=== PATIENT | female | born 1945 | race Asian ===

== ENCOUNTER 2016-10-12 22:53 | Inpatient (IN) | payer OTHER ==
[~2016-10-12] VITALS: Ht 144.8 cm; Wt 53.3 kg
--- NOTE | 2016-10-12 23:03 | NUR ---
PT BIBA FOR C/O HEADACHE FOR "SEVERAL WEEKS". PT REPORTS SHE HAS BEEN SEEN X5 THIS MONTH FOR HEADACHE, HIGH BP AND VOMITING. PT REPORTS NAUSEA AND VOMITING TODAY. PT REPORTS PRESSURE LIKE HEADACHE. PT DENIES ANY DYSURIA/HEMATURIA. RESPIRATIONS EVEN AND UNLABORED. NO ACUTE DISTRESS NOTED. BED IN LOW POSITION. CALL LIGHT WITHIN REACH.
--- NOTE | 2016-10-12 23:35 | NUR ---
PT ASSISTED TO BEDSIDE COMMODE AND BACK INTO BED, NO ACUTE DISTRESS NOTED.
[2016-10-12 23:54] LABS: PLATELET COUNT 216 x10^3mcL (130-400)
[2016-10-12 23:55] LABS: RED CELL DISTRIBUTION WIDTH 14.9 % (11.5-14.5)
--- NOTE | 2016-10-12 23:55 | NUR ---
PT SITTING IN BED, IN POSITION OF COMFORT. RESPIRATIONS EVEN AND UNLABORED. SON AT BEDSIDE. NO ACUTE DISTRESS NOTED. BED IN LOW POSITION. CALL LIGHT WITHIN REACH.
[2016-10-13 00:19] LABS: ALBUMIN 3.5 g/dL (3.4-5.0); ALKALINE PHOSPHATASE 63 U/L (46-116); ALT/SGPT 32 U/L (14-59); AST/SGOT 21 U/L (15-37); BILIRUBIN TOTAL 0.5 mg/dL (0.20-1.00); CALCIUM 8.7 mg/dL (8.5-10.1); CARBON DIOXIDE 28.2 mmol/L (21-32); CHLORIDE SERUM 79 mmol/L (98-107); CREATININE SERUM 0.7 mg/dL (0.6-1.0); GFR1 > 60 mL/min; GLUCOSE SERUM 132 mg/dL (74-106); POTASSIUM SERUM 3.4 mmol/L (3.5-5.1); TOTAL PROTEIN, SERUM 7.9 g/dL (6.4-8.2)
[2016-10-13 00:22] LABS: SODIUM SERUM 114 mmol/L (136-145)
[2016-10-13 00:40] LABS: ATYPICAL LYMPH 1 %; BAND NEUTROPHIL 5 % (0-10); MONOCYTE 13 % (0-7); SEGMENTED NEUTROPHILS 59 % (37-75)
[2016-10-13 00:42] LABS: PLATELET MORPHOLOGY LARGE PLATELET SEEN; rbc morphology (normal/abnorm) ABNORMAL (NORMAL)
--- NOTE | 2016-10-13 00:57 | NUR ---
PT SITTING IN BED, IN POSITION OF COMFORT. RESPIRATIONS EVEN AND UNLABORED. NO ACUTE DISTRESS NOTED. BED IN LOW POSITION. CALL LIGHT WITHIN REACH.
[2016-10-13] MEDS ORDERED: PEPCID20 MG PO (01:05)
[2016-10-13] MEDS ORDERED: FUROSEMIDE20 MG PO (01:07)
[2016-10-13] MEDS ORDERED: COZAAR100 MG PO (01:08)
[2016-10-13] MEDS ORDERED: NOR10 PO (01:08)
[2016-10-13] MEDS ORDERED: MINOXIDIL2.5 MG PO (01:08)
[2016-10-13] MEDS ORDERED: LORAZEPAM0.5 MG PO (01:09)
[2016-10-13] MEDS ORDERED: GLIPIZIDE10 M2 PO (01:09)
[2016-10-13] MEDS ORDERED: CATAPRES0.1 MG PO (01:09)
[2016-10-13] MEDS ORDERED: ASPIR 8181 MG PO (01:10)
[2016-10-13] MEDS ORDERED: HYDROCHLOROTHIA25 MG PO (01:10)
[2016-10-13] MEDS ORDERED: METFORMIN HCL750 MG PO (01:10)
--- NOTE | 2016-10-13 01:10 | NUR ---
PT ADMITTED FROM ED ACCOMPANIED BY ED NURSE. PT IS AWAKE AND ORIENTED X4. PT REPORTS GODOY AND HAS BEEN EXPERIENCING GODOY ON AND OFF FOR A COUPLE OF WEEKS. PT SPEAKS POLISH PRIMARILY BUT IS ABLE TO COMMUNICATE AND MAKE NEEDS KNOWN TO NURSING STAFF. PT IS SINUS NICO 55 ON TELE#10. PT DENIES CHEST PAIN OR PRESSURE. PT HAS PALPABLE PULSES BILAT ALL EXTREMITIES. NO SIGNS OF EDEMA. PT DENIES SOB. RESPIRATIONS EVEN AND UNLABORED ON ROOM AIR. PT HAS CLEAR LUNG SOUNDS. PT HAS ACTIVE BOWEL SOUNDS. PT REPORT LAST BM WAS 10/12/16. PT DENIES ABD PAIN AND N/V AT THIS TIME. PT VOIDS FREELY ON OWN. PT AMBULATORY WITH ASSIST. PT HAS GENERALIZED WEAKNESS. PT SKIN CDI. IV TO RIGHT WRIST. IV PATENT WITH NO SIGNS OF INFILTRATION. NO SIGNS OF DISTRESS. WILL CONTINUE TO MONITOR.
--- NOTE | 2016-10-13 01:25 | NUR ---
REPORT CALLED TO [facility] FOR ADMISSION OF THIS PT.
[2016-10-13] MEDS ORDERED: GLUCOTROL10 MG PO (03:05)
[2016-10-13 03:15] LABS: CHOLESTEROL/HDL RATIO 1.8
[2016-10-13 03:22] LABS: FREE T4 1.53 ng/dL (0.76-1.46); FREE THYROXINE INDEX 4.1 ug/dL (1.4-4.5); T4(THYROXINE) 11.5 ug/dL (4.7-13.3)
[2016-10-13 04:20] VITALS: BP 162/54
[2016-10-13 04:38] LABS: T3 TOTAL 0.99 ng/mL
--- NOTE | 2016-10-13 04:55 | NUR ---
PT REMAINS IN BED AT THIS TIME RESTING WITH EYES CLOSED. PT SINUS NICO AT THIS TIME BUT NO SIGNS OF DISTRESS NOTED. WILL CONTINUE TO MONITOR.
[2016-10-13 06:33] LABS: PLATELET COUNT 229 x10^3mcL (130-400)
[2016-10-13 06:42] LABS: CALCIUM 8.3 mg/dL (8.5-10.1); CARBON DIOXIDE 28.9 mmol/L (21-32); CHLORIDE SERUM 81 mmol/L (98-107); CREATININE SERUM 0.7 mg/dL (0.6-1.0); GFR1 > 60 mL/min; GLUCOSE SERUM 100 mg/dL (74-106); MAGNESIUM 1.4 mg/dL (1.8-2.4); PHOSPHOROUS 3.6 mg/dL (2.5-4.9); POTASSIUM SERUM 3.4 mmol/L (3.5-5.1)
[2016-10-13 06:46] LABS: SODIUM SERUM 117 mmol/L (136-145)
[2016-10-13 06:59] VITALS: BP 170/50
--- NOTE | 2016-10-13 07:03 | NUR ---
PT IS CALM AND COOPERATIVE WITH NURSING CARE. PT BP 170/50. PT GIVEN 0900 MEDS EARLY (WALDO RAY). PT DENIES CHEST PAIN OR PRESSURE. PT DENIES SOB. RESPIRATIONS EVEN AND UNLABORED ON ROOM AIR. NO SIGNS OF DISTRESS. WILL ENDORSE TO DAY NURSE.
[2016-10-13 07:05] LABS: RED CELL DISTRIBUTION WIDTH 14.7 % (11.5-14.5)
--- NOTE | 2016-10-13 08:00 | NUR ---
PT AWAKE AND ALERT. TEMP 98.7. TELE #10 SINUS RHYTHM RATE 60. DENIES CHEST DISCOMFORT OR GODOY AT THIS TIME. 0700 KN=187/50. HR=54. WILL CONTINUE TO MONITOR. RESP 18 EVEN. BREATH SOUNDS CLEAR. NO COUGH OR SOB. ABD SOFT, BOWEL TONES PRESENT. LBM THIS AM. VOIDING QS. NO EDEMA. PULSES PRESENT. SCD IN PLACE. IV PATENT RIGHT WRIST INFUSING NORMAL SALINE 50CC/HR. SIDE RAILS UP X2. CALL LIGHT IN REACH.
--- NOTE | 2016-10-13 08:50 | NUR ---
HR=60. OH=054/57. PULSE OX 100% RA. DENIES CHEST DISCOMFORT. ANXIOUS RE:AMOUNT OF MEDS HER PCP ORDERS FOR HER. "I TAKE 5 BP PILLS AT HOME." FULL LIQ BREAKFAST SERVED.
[2016-10-13 09:15] VITALS: BP 158/57
[2016-10-13 09:39] LABS: ATYPICAL LYMPH 1 %; BAND NEUTROPHIL 0 % (0-10); BASOPHIL 0 % (0-2); MONOCYTE 16 % (0-7); SEGMENTED NEUTROPHILS 50 % (37-75); rbc morphology (normal/abnorm) ABNORMAL (NORMAL)
--- NOTE | 2016-10-13 10:00 | NUR ---
REVIEWED WITH PT AND S/S OF LOW SODIUM LEVEL. MAY CAUSE SEIZURES. SEIZURE PRECAUTIONS IN PLACE AT THIS TIME. NO SEIZURE ACTIVITY NOTED. REVIEWED FLUID INTAKE AT HOME. STATES "SHE DRINKS ALOT OF WATER AT HOME." INSTRUCTED WITH FLUID RESTRICTION 1000CC PER 24 HOURS. PT AND VERBALIZED UNDERSTANDING.
[2016-10-13 12:45] VITALS: BP 172/66
--- NOTE | 2016-10-13 12:45 | NUR ---
NB=602/66. HR=60. PULSE OX 100% RA. LAB CALLED WITH SODIUM NUING=791. MED WITH CLONIDINE 0.1MG PO ORDERED. WILL CONTINUE TO MONITOR VITAL SIGNS. TOLERATED LOW FAT DIET WELL.
--- NOTE | 2016-10-13 12:50 | NUR ---
PAGE TO DR PÉREZ REGHAROONING PT STATUS. AWAITING RETURN CALL.
[2016-10-13 12:54] LABS: CALCIUM 8.7 mg/dL (8.5-10.1); CARBON DIOXIDE 25.8 mmol/L (21-32); CHLORIDE SERUM 86 mmol/L (98-107); CREATININE SERUM 0.7 mg/dL (0.6-1.0); GFR1 > 60 mL/min; GLUCOSE SERUM 161 mg/dL (74-106); POTASSIUM SERUM 4.4 mmol/L (3.5-5.1)
[2016-10-13 12:57] LABS: SODIUM SERUM 120 mmol/L (136-145)
[2016-10-13 13:08] LABS: UA SPECIFIC GRAVITY <=1.005 (1.005-1.035); microscopic required? YES; urine erythrocyte NEGATIVE (NEGATIVE)
[2016-10-13 13:22] LABS: AMPHETAMINE QUAL UR NONE DETECTED (NEG <=1000)
[2016-10-13 13:40] VITALS: Ht 144.8 cm; Wt 53.3 kg
--- NOTE | 2016-10-13 13:45 | NUR ---
ULTRASOUND AT BEDSIDE.
--- NOTE | 2016-10-13 14:05 | NUR ---
CALL FROM [place]. PT HAD SHORT RUN V-TACH 9 SEC. PRINTOUT ON CHART. PERFECT BINDER OPERATOR AT BEDSIDE. VITAL SIGNS TAKEN. PT AWAKE AND ALERT. DENIES CHEST DISCOMFORT OR PALPITATIONS. HR=59. SD=999/66. PULSE OX 100%. PAGE TO DR PÉREZ.
--- NOTE | 2016-10-13 14:10 | NUR ---
RHYTHM STRIP REVIEWED WITH DR PÉREZ. UPDATED WITH NA LEVEL 120, AND XX=590/66. ALSO REVIEWED SONS REQUEST FOR DR TO CALL TO UPDATE ON MOTHERS CONDITION DUE TO LANGUAGE BARRIER. VERBALIZED UNDERSTANDING.
[2016-10-13 16:46] LABS: CALCIUM 8.5 mg/dL (8.5-10.1); CARBON DIOXIDE 30.7 mmol/L (21-32); CHLORIDE SERUM 90 mmol/L (98-107); CREATININE SERUM 0.9 mg/dL (0.6-1.0); GFR1 > 60 mL/min; GLUCOSE SERUM 163 mg/dL (74-106); POTASSIUM SERUM 4.4 mmol/L (3.5-5.1)
[2016-10-13 16:48] LABS: SODIUM SERUM 123 mmol/L (136-145)
--- NOTE | 2016-10-13 17:00 | NUR ---
LAB CALLED WITH SODIUM LEVEL 123. REPORTED TO DR PÉREZ. SON HERE AT BEDSIDE. WOULD LIKE TO DISCUSS MOTHERS STATUS. DR PÉREZ WILL BE OVER TO SPEAK WITH PT AND FAMILY. ALSO AT BEDSIDE. NO FURTHER NOTE OF VTACH THIS AFTERNOON. ELEVATED T WAVE NOTED SINUS NICO RATE 58-60. ORTHOSTATIC VITAL SIGNS DONE. SEE VITAL SIGNS SECTION. PT DENIES PAIN. IV CONTINUES PATENT. JLS=[id number]. RISS COVERAGE 3 UNITS SQ. DISCUSSED WITH SON MOTHERS HABITS AT HOME:REPORTS "SHE GETS ANXIOUS BECAUSE SHE TAKES A WATER PILL AND URINATES ALOT SO SHE DRINKS ALOT OF WATER TO REPLACE THAT, HER BLOOD PRESSURE IS HIGH SO SHE DOES NOT EAT ALOT OF FOOD. C/O STOMACH DISCOMFORT AT HOME, NAUSEA, VOMITTING AND DIARRHEA. SEEN BY GI DR YESTERDAY AND WANTS TO DO ENDOSCOPY PROCEDURE TO CHECK STOMACH FOR IRRITATION. WOULD TO HAVE IT DONE HERE IF POSSIBLE. HAS BEEN ON METFORMIN FOR 10 YEARS, DIABETIC FOR 20 YEARS. WE WOULD LIKE HER TO START ON INSULIN BECAUSE THE PILLS ARE UPSETTING HER STOMACH. THIS IS HER 5TH HOSPITAL VISIT FOR LOW SODIUM LEVEL. HER POTASSIUM LEVEL WAS HIGH LAST TIME. HER PCP STARTED HER ON ATIVAN 0.5MG AT HOME. SHE IS SO ANXIOUS, TAKES BP Q15 MIN SOMETIMES. ALSO HAD ONE KIDNEY REMOVED AT AGE 16." A[address] PÉREZ TO REVIEW TX PLAN.
--- NOTE | 2016-10-13 18:35 | NUR ---
DR PÉREZ IN TO SPEAK WITH PT AND FAMILY.
--- NOTE | 2016-10-13 19:50 | NUR ---
REC'D PT FROM DAY SHIFT NURSE. PT LAYING COMFORTABLY IN BED. AAOX4, SPEECH CLEAR, CALM AND PLEASANT. NO SIGNS OF DISTRESS NOTED. BREATHING EVEN/UNLABORED. ON TELE #10. DENIES CP, DIZZINESS, OR PALPITATIONS. DENIES ABD PAIN OR N/V. NO EPISODES OF DIARRHEA TODAY. CALL LIGHT WITHIN REACH, BED AT LOWEST POSITION. WILL CONTINUE TO MONITOR.
[2016-10-13 20:35] LABS: CALCIUM 8.7 mg/dL (8.5-10.1); CARBON DIOXIDE 27.3 mmol/L (21-32); CHLORIDE SERUM 91 mmol/L (98-107); CREATININE SERUM 0.8 mg/dL (0.6-1.0); GFR1 > 60 mL/min; GLUCOSE SERUM 68 mg/dL (74-106); POTASSIUM SERUM 4.4 mmol/L (3.5-5.1); SODIUM SERUM 126 mmol/L (136-145)
[2016-10-13 20:57] VITALS: BP 130/48; BP 172/50
--- NOTE | 2016-10-13 21:30 | NUR ---
BS 57/59. PT FEELS "FINE." NO COMPLAINTS AT THIS TIME. 1 AMP D50 IVP GIVEN. WILL RECHECK IN [address] MONTOYA MADE AWARE.
--- NOTE | 2016-10-13 21:56 | NUR ---
RECHECKED BS 177. PT DENIES GODOY OR DIZZINESS. WILL TRY AND SLEEP NOW. DR. MONTOYA AWARE. WILL CONTINUE TO MONITOR.
--- NOTE | 2016-10-14 01:26 | NUR ---
PT RESTING IN BED WITH EYES CLOSED. AUDIBLE SNORING. NO SIGNS OF DISTRESS NOTED. BREATHING EVEN/UNLABORED. CALL LIGHT WITHIN REACH, BED AT LOWEST POSITION. WILL CONTINUE TO MONITOR.
[2016-10-14 05:38] VITALS: BP 189/63
--- NOTE | 2016-10-14 06:10 | NUR ---
PT RESTING COMFORTABLY IN BED. AWAKE, QUIET, CALM. SPEECH CLEAR. NO SIGNS OF DISTRESS NOTED. BREATHING EVEN/UNLABORED. C/O R RIB PAIN 03/26. DENIES SOB. MORPHINE GIVEN PER ORDER. BS 106, NO COVERAGE. DENIES DIZZINESS, GODOY, OR N/V. NO BM TONIGHT. NO SIGNIFICANT CHANGES DURING SHIFT. CALL LIGHT WITHIN REACH, BED AT LOWEST POSITION, SZ PREC IN PLACE. WILL ENDORSE TO DAY SHIFT NURSE.
[2016-10-14 07:25] LABS: CALCIUM 8.3 mg/dL (8.5-10.1); CARBON DIOXIDE 26.9 mmol/L (21-32); CHLORIDE SERUM 92 mmol/L (98-107); CREATININE SERUM 0.6 mg/dL (0.6-1.0); GFR1 > 60 mL/min; GLUCOSE SERUM 125 mg/dL (74-106); MAGNESIUM 2.1 mg/dL (1.8-2.4); PHOSPHOROUS 3.5 mg/dL (2.5-4.9); POTASSIUM SERUM 4.1 mmol/L (3.5-5.1); SODIUM SERUM 127 mmol/L (136-145)
--- NOTE | 2016-10-14 07:30 | NUR ---
RECEIVED THE PATIENT AWAKE AND ORIENTED TO PERSON, PLACE AND TIMES. DENIED SHORTNESS OF BREATH OR NAUSEA/VOMITING AT THIS TIME. PATIENT STATED HAVING SOME UNCOMFORT IN STOMACH; WILL MEDICATE FOR THAT. IVF NS VIA H/L TO RIGHT WRIST. TELE # 10 READS SINUS RHYTHMS WITH EPISODES OF SINUS BRADYCARDIA. CALL LIGHT WITHIN REACH. SIDE RAILS UP X3.
[2016-10-14 07:50] LABS: PLATELET COUNT 248 x10^3mcL (130-400)
[2016-10-14 07:53] LABS: RED CELL DISTRIBUTION WIDTH 14.9 % (11.5-14.5)
--- NOTE | 2016-10-14 09:10 | NUR ---
DR. JORDAN AND THE TEAM WERE MAKING ROUND TO SEE THE PATIENT. THE CARE PLAN WAS EXPLAINED TO THE PATIENT VIA [employer] DEVELOPMENT TEAM LEAD-ONE OF RN, AND THE PATIENT VERBALIZED UNDERSTANDING.
[2016-10-14 11:15] VITALS: BP 154/54
[2016-10-14 11:17] LABS: BAND NEUTROPHIL 6 % (0-10); MONOCYTE 15 % (0-7); SEGMENTED NEUTROPHILS 56 % (37-75)
[2016-10-14 11:18] LABS: rbc morphology (normal/abnorm) ABNORMAL (NORMAL)
[2016-10-14 11:19] LABS: PLATELET MORPHOLOGY PLATELETS NORMAL
[2016-10-14 14:46] VITALS: BP 141/50
--- NOTE | 2016-10-14 18:57 | NUR ---
THE PATIENT WAS RESTING IN BED WITHOUT DISTRESS NOTED. THE PATIENT AMBULATED IN THE HALLWAY TWICE DURING THE SHIFT. THE SON WAS AT BEDSIDE WITH THE PATIENT.
--- NOTE | 2016-10-14 19:23 | NUR ---
SEIZURE PRECAUTION MAINTAINED THROUGHOUT THE SHIFT FOR LOW NA LEVEL 127.
--- NOTE | 2016-10-14 19:35 | NUR ---
RECEIVED REPORT FROM DAY RN. PT IS AWAKE, SITTING IN CHAIR TALKING WITH FAMILY MEMEBERS. PT IS A/O X4. SPEECH CLEAR, FOLLOWS ALL COMMANDS. RESPIRATIONS EVEN AND UNLABORED ON ROOM AIR. PT SR ON MONITOR TELE # 10. PT ASKING FOR WATER, INFORMED HER SHE IS ON FLUID RESTRICTION AND THE AMOUNT SHE CAN HAVE FOR THE REST OF THE EVENING, PT VERBALIZED UNDERSTANDING, PROVIDED. IV TO R WRIST LOCKED. PT ABLE TO REPOSITION SELF AND AMBULATE INDEPENDENTLY. RESTRICTION TO R EXTREMETY, [employer]AREHOUSE [employer]IPPING RECEIVING CLERK AWARE. BED IN LOW POSITION CALL LIGHT WITHIN REACH. WILL COMPLETE FULL ASSESSMENT AND CONTINUE TO MONITOR CLOSELY.
[2016-10-14 20:12] VITALS: BP 165/57
--- NOTE | 2016-10-14 23:44 | NUR ---
RECEIVED PATIENT FROM CELESTINO JORGE, PATIENT RESTING IN BED, IN NO ACUTE DISTRESS, WILL CONTINUE TO MONITOR
[2016-10-15] VITALS (7 sets, daily range): BP systolic 143–211; BP diastolic 45–75
--- NOTE | 2016-10-15 06:26 | NUR ---
PATIENT RESTING IN BED, IN NO ACUTE DISTRESS, NO C/O PAIN OR SOB AT THIS TIME, NO SIGNIFICANT CHANGES LAST SHIFT, BED IN LOW POSITION, BED RAILS UP X 2, CALL LIGHT WITHIN REACH, WILL ENDORSE CARE TO AM NURSE
[2016-10-15 06:58] LABS: CALCIUM 8.2 mg/dL (8.5-10.1); CARBON DIOXIDE 27.7 mmol/L (21-32); CHLORIDE SERUM 95 mmol/L (98-107); CREATININE SERUM 0.7 mg/dL (0.6-1.0); GFR1 > 60 mL/min; GLUCOSE SERUM 133 mg/dL (74-106); MAGNESIUM 2.1 mg/dL (1.8-2.4); PHOSPHOROUS 3.5 mg/dL (2.5-4.9); POTASSIUM SERUM 4.9 mmol/L (3.5-5.1); SODIUM SERUM 130 mmol/L (136-145)
[2016-10-15 07:29] LABS: PLATELET COUNT 234 x10^3mcL (130-400); RED CELL DISTRIBUTION WIDTH 15.1 % (11.5-14.5)
--- NOTE | 2016-10-15 08:02 | NUR ---
Pt is A+Ox4, sitting at edge of bed, eating breakfast. Pt denies any pain or nausea. Tele #10, NSR, HR: 64, pulses equal bilaterally, negative for edema, lung sounds clear, Pt denies SOB, tolerating Room Air, positive for flatus, negatice for BM, colace given, voiding without difficulty. Pt remains on fluid restriction of 1 Liter/Day. Pt has generalized weakness and ambulates independently to the bathroom. Skin is dry and intact. Pt has a saline lock on the right hand, site WNL.
--- NOTE | 2016-10-15 08:23 | NUR ---
Na: 130
--- NOTE | 2016-10-15 10:26 | NUR ---
EARLIER, UP AMBULATING IN HALLWAY WITH FAMILY.
--- NOTE | 2016-10-15 10:37 | NUR ---
Receieved call from Tele alarm security or surveillance monitor that Pt HR was 42-48. Looked in on Pt, Pt was sleeping, woke easily, stated she was not in pain, no SOB, breathing unlabored, HR: 45-[address] page Dr. Singleton.
--- NOTE | 2016-10-15 10:44 | NUR ---
SPOKE WITH DR COLE, AWARE HR HAS DROPPED LOW 36, HR 40-53.
[2016-10-15 11:33] LABS: BAND NEUTROPHIL 8 % (0-10); MONOCYTE 6 % (0-7); SEGMENTED NEUTROPHILS 38 % (37-75)
[2016-10-15 11:34] LABS: ATYPICAL LYMPH 2 %; PLATELET MORPHOLOGY N; rbc morphology (normal/abnorm) ABNORMAL (NORMAL)
--- NOTE | 2016-10-15 12:45 | NUR ---
Pt given 9 units of insulin for blood sugar: 279. Pt ambulated around the unit several times with her daughter. Pt currently denies pain and SOB, at bedside.
[2016-10-15 14:12] LABS: CALCIUM 8.4 mg/dL (8.5-10.1); CARBON DIOXIDE 29.4 mmol/L (21-32); CHLORIDE SERUM 95 mmol/L (98-107); CREATININE SERUM 0.6 mg/dL (0.6-1.0); GFR1 > 60 mL/min; GLUCOSE SERUM 161 mg/dL (74-106); POTASSIUM SERUM 4.6 mmol/L (3.5-5.1); SODIUM SERUM 128 mmol/L (136-145)
--- NOTE | 2016-10-15 17:00 | NUR ---
Pt given a cup of apple juice with sugar and half of a sandwich to increase blood sugar. Pt is A+Ox4 and denies pain, SOB, nausea, and diaphoresis.
--- NOTE | 2016-10-15 17:00 | NUR ---
PAGED DR COLE TO MAKE AWARE OF BLOOD SUGAR 57/54, BP 210/67 HR 71.
--- NOTE | 2016-10-15 17:08 | NUR ---
SPOKE WITH DR COLE AWARE OF LOW BLOOD SUGAR AND HIGH BP.
--- NOTE | 2016-10-15 18:45 | NUR ---
Pt Blood sugar: 109, BP: 211/68, HR: 70. Nitroglycerin SL tab given. Pt resting in bed with and son at bedside. Pt denies chest pain, SB, and generalized pain.
--- NOTE | 2016-10-15 19:09 | NUR ---
CALLED AND SPOKE WITH DR MONTOYA. MADE AWARE OF ELEVATED BP AND NTG GIVEN X 2.
--- NOTE | 2016-10-15 19:53 | NUR ---
PT SEEN, RESTING IN BED, ALERT AND ORIENTED, DENIES HEADACHE OR DIZZINESS, BREATHING EVEN AND UNLABORED, NO SOB, LUNG SOUNDS CLEAR, ON ROOM AIR WITH NO RESP DISTRESS NOTED, ON TELE#10 NSR WITH SB, DENIES CHEST PAIN, PULSES PALPABLE, NO EDEMA NOTED, AMBULATORY WITH STEADY GATI, ABD SOFT AND FLAT WITH ACTIVE BS, NO BM AT THIS TIME, PT'S BP-216/69, HR-75, LABETOLOL 10MG VIA IVP ADMINISTERED, FAMILY AT BEDSIDE, NO DISTRESS NOTED, WILL KEEP TO MONITOR.
--- NOTE | 2016-10-15 21:56 | NUR ---
RECHECK PT'S BP AFTER GIVEN LABETALOL 10MG VIA IVP, BP-207/66, LONITEN 2.5MG/ISORDIL 20MG AND CLONIDINE 0.1MG VIA ORAL ADMINISTERED, PT REFUSED RISS 3 UNITS TONIGHT WITH BLOOD SUGAR-195 MG/DL, MADE DR MONTOYA AWARE.
--- NOTE | 2016-10-15 23:00 | NUR ---
MADE DR MONTOYA AWARE OF PT'S BP-172/51, AWAITING NEW ORDERS.
--- NOTE | 2016-10-16 00:01 | NUR ---
RECHECK PT'S BP PRIOR ADMINISTER VASOTEC IVP, PT'S BP-145/45, HR-59, MADE DR APONTE AWARE, PER DR FAY COATS TO HOLD VASOTEC IVP AT THIS TIME.
[2016-10-16 01:05] LABS: CALCIUM 8.2 mg/dL (8.5-10.1); CHLORIDE SERUM 96 mmol/L (98-107); CREATININE SERUM 0.8 mg/dL (0.6-1.0); GFR1 > 60 mL/min; GLUCOSE SERUM 179 mg/dL (74-106); POTASSIUM SERUM 4.8 mmol/L (3.5-5.1); SODIUM SERUM 130 mmol/L (136-145)
[2016-10-16 05:32] VITALS: BP 146/52
--- NOTE | 2016-10-16 06:27 | NUR ---
PATIENT ASLEEP AND EASILY AROUSABLE. SLEPT MOST OF THE NIGHT. MORNING BP 146/52. MORNING BS 126 MG/DL. PT ON TELE #10, SB. SALINE LOCK TO THE RIGHT WRIST. SEIZURE PRECAUTIONS IN PLACE.
[2016-10-16 06:31] LABS: PLATELET COUNT 208 x10^3mcL (130-400)
[2016-10-16 06:49] LABS: CALCIUM 8.4 mg/dL (8.5-10.1); CARBON DIOXIDE 27.4 mmol/L (21-32); CHLORIDE SERUM 96 mmol/L (98-107); CREATININE SERUM 0.9 mg/dL (0.6-1.0); GFR1 > 60 mL/min; GLUCOSE SERUM 143 mg/dL (74-106); MAGNESIUM 1.8 mg/dL (1.8-2.4); PHOSPHOROUS 4.4 mg/dL (2.5-4.9); POTASSIUM SERUM 5.2 mmol/L (3.5-5.1); SODIUM SERUM 131 mmol/L (136-145)
--- NOTE | 2016-10-16 07:18 | NUR ---
UP AND AMBULATING AROUND ROOM AND HALLWAY. ALERT AND ORIENTED. NO SOB NOTED, ROOM AIR. TELE 10. NO EDEMA NOTED. REPORTS SMALL BM LAST NIGHT. IV TO RIGHT WRIST WNL, HEPLOCKED. LAST BP 146/52 HR ON MONITOR 60. K+ 5.2.
[2016-10-16 07:44] LABS: RED CELL DISTRIBUTION WIDTH 14.9 % (11.5-14.5)
--- NOTE | 2016-10-16 08:53 | NUR ---
TOOK AM MEDS WITHOUT DIFFICULTY. ASKING IF FLUID RESTRICTIONS HAVE BEEN LIFTED.
[2016-10-16 10:09] VITALS: BP 136/54
[2016-10-16 10:31] VITALS: BP 136/54
--- NOTE | 2016-10-16 10:45 | NUR ---
FAMILY BEDSIDE, NO DISTRESS NOTED.
[2016-10-16 11:16] LABS: ATYPICAL LYMPH 3 %; BAND NEUTROPHIL 3 % (0-10); BASOPHIL 0 % (0-2); MONOCYTE 12 % (0-7); SEGMENTED NEUTROPHILS 61 % (37-75)
[2016-10-16 11:18] LABS: PLATELET MORPHOLOGY PLATELETS DECREASED; rbc morphology (normal/abnorm) ABNORMAL (NORMAL)
[2016-10-16] MEDS ORDERED: I20 PO (11:36)
--- NOTE | 2016-10-16 12:04 | NUR ---
INSTRUCTED BY DR ANDRADE NOT TO GIVE MIRALAX UNTIL AFTER BMP RESULTS ARE IN AND SHOW K+ ELEVATED.
[2016-10-16 12:06] LABS: CALCIUM 8.3 mg/dL (8.5-10.1); CARBON DIOXIDE 27.4 mmol/L (21-32); CHLORIDE SERUM 94 mmol/L (98-107); CREATININE SERUM 0.8 mg/dL (0.6-1.0); GFR1 > 60 mL/min; GLUCOSE SERUM 178 mg/dL (74-106); POTASSIUM SERUM 4.7 mmol/L (3.5-5.1); SODIUM SERUM 129 mmol/L (136-145)
[2016-10-16] MEDS ORDERED: SODIUM CHLORIDE1 G1 PO ×2 (12:40→12:45)
--- NOTE | 2016-10-16 12:48 | NUR ---
DISCHARGE ORDER RECEIVED. PAGED DR ANDRADE CONCERNING NA 129 AND K 4.7.
--- NOTE | 2016-10-16 13:00 | NUR ---
DR ANDRADE IN TO SEE PATIENT AND TALK WITH SON GISSELLE AGUILAR. PER GISSELLE, DON'T GIVE ATIVAN AT THIS TIME BECAUSE DR ANDRADE TOLD HIM PATIENT SHOULD ONLY TAKE AT NIGHT.
--- NOTE | 2016-10-16 13:32 | NUR ---
REVIEWED DC INSTRUCTIONS WITH PATIENT AND SON GISSELLE VYAS. ASKED IF THEY WOULD LIKE AN DIRECT SUPPORT [facility] FOR INSTRUCTIONS, DECLINED. VERBALIZED UNDERSTANDING OF DC INTRUCTIONS. IV DC'D CATHETER INTACT.
[2016-10-16 13:33] VITALS: BP 145/63
--- NOTE | 2016-10-16 13:38 | NUR ---
RETRIEVED MEDICATIONS FROM PHARMACY AND GAVE TO SON.
--- NOTE | 2016-10-16 13:54 | NUR ---
OFF FLOOR VIA WHEELCHAIR WITH RN AND SON. ALL BELONGINGS WITH SON.
== END 2016-10-16 13:46 | disposition home or self-care (01) | DRG 640 ==
LOC: ED 22:53 → DU 10-13 00:51
PROVIDERS: Emergency Medicine; ADMIT Family Medicine
DX: E87.1 Hypo-osmolality and hyponatremia (principal); N17.0 Acute kidney failure with tubular necrosis; G93.41 Metabolic encephalopathy; D61.818 Other pancytopenia; D68.69 Other thrombophilia; E86.0 Dehydration; E11.65 Type 2 diabetes mellitus with hyperglycemia; E04.1 Nontoxic single thyroid nodule; E87.6 Hypokalemia; I16.0 Hypertensive urgency; Z90.5 Acquired absence of kidney; Z92.3 Personal history of irradiation; Z87.442 Personal history of urinary calculi; Z79.82 Long term (current) use of aspirin; Z68.25 Body mass index [BMI] 25.0-25.9, adult; Z85.3 Personal history of malignant neoplasm of breast; Z79.84 Long term (current) use of oral hypoglycemic drugs
CPT/HCPCS: 80307; 82947; 82962; 83880; 84439; J2270; J2405; J3475; J3490; J7030; Q0092; Q0162